=== PATIENT | male | born 1975 | race Caucasian/White ===

== ENCOUNTER 2018-06-06 10:40 | Outpatient (CLI) | payer BC, SELFPAY ==
--- NOTE | 2018-06-06 10:35 | DI.RAD_ITS ---
SYMPTOMS/DIAGNOSIS: PAIN RIGHT KNEE: Two views. Comparison 11/23/16. There is moderate narrowing of the medial femoral tibial joint space. The articular surfaces are otherwise well maintained. The bones are intact and normally mineralized. There is a small enthesophyte of the right patella. There is a small suprapatellar joint effusion. IMPRESSION: Osteoarthritis of the right knee. LEFT KNEE: Two views. The joint spaces are well maintained. There is a small enthesophyte at the superior aspect of the patella. The bones are intact and normally mineralized. The soft tissues are unremarkable. IMPRESSION: Unremarkable examination.
== END 2018-06-06 11:00 ==
PROVIDERS: Visit Provider Orthopaedic Surgery
DX: M25.561 Pain in right knee (principal); M25.562 Pain in left knee; M17.11 Unilateral primary osteoarthritis, right knee
CPT/HCPCS: 73560

== ENCOUNTER 2018-08-28 15:28 | Emergency (ER) | payer BC, SELFPAY ==
[2018-08-28 15:31] VITALS: BP 133/89; PULSE 96; RESP 16; TEMP 36.9; O2SAT 95
--- NOTE | 2018-08-28 15:34 | W.ED.GENAD ---
Discharge Plan Disposition Patient Disposition: HOME Condition: Stable Discharge Details Chief Complaint: Vascular Clinical Impression: Traumatic ecchymosis of right lower leg, Hernia, umbilical Primary Care Provider: Gisell Tony ED Provider: Edmar Butler Home Meds and New Rx's Prescriptions: Continued Prednisone 5 mg tablet 5 mg PO QAM RF: 0 loratadine-pseudoephedrine 1 EACH tablet extended release 24 hr 1 ea PO DAILY RF: 0 citalopram 20 MG tablet 40 mg PO DAILY RF: 0 ranitidine HCl [Zantac Maximum Strength] 150 MG tablet 150 mg PO DAILY PRNRF: 0 Symbicort 10.2 GM HFA aerosol inhaler 2 puff Inhalation BID RF: 0 hydrochlorothiazide 25 MG tablet 1 tab PO DAILY RF: 0 albuterol sulfate [ProAir HFA] 200 PUFF HFA aerosol inhaler 2 puff Inhalation PRN PRNRF: 0 Discharge Instructions Instructions: Umbilical Hernia (ED), Ecchymosis (ED) Additional Instructions: He may wear the compression socks while awake or perform activities and remove them at night. This will help with swelling and discomfort. You may continue to use [id number] pain medication as needed for pain and apply ice as well to help with swelling along with keep extremities elevated. If not improving over the next week please follow-up with your primary care provider for reassessment and for any rapid changes or new symptoms feel free to return to the emergency department for reevaluation. Referrals: [facility] [Provider Group] (Call the office in the next couple days for arrangement of follow-up appointment for your umbilical hernia.) Gisell Tony [Primary Care Provider] - (As needed for reassessment) Discharge Data Discharge Date/Time-TO BE ENTERED AT DEPARTURE: 08/28/18 17:46 Medical Decision Making <SHAUN Monte - Last Filed: 08/29/18 13:37> Patient is a 43-year-old male presenting today with chief complaint of right lower extremity swelling and ecchymosis. He reports that 4 days ago he fell from a ladder striking the anterior aspect of his tibia against a wrong and suffering an abrasion. The abrasion has healed well but he continues to have ecchymosis that runs along the anterior medial aspect of the tibia and down into the medial aspect of the foot. Much of this seems to have been ecchymosis from the initial trauma that is come down secondary to gravity. However, I am concerned that he has pitting edema particular on the medial aspect. Negative Homans sign. 2+ distal pulses. Foot is normal as is the knee. Patient denies any chest pain or shortness of breath. Patient slightly tachycardic at 96. At this point, my primary concern is for possible posttraumatic clot, will obtain a DVT study. Patient is also questioning hernia on his abdomen. He reports that a few months ago he was coughing forcefully and since then has noted a defect to the left lateral aspect of the umbilicus. He does have a palpable defect here. No evidence of incarceration. Will refer patient to general surgery for follow-up. At the end of my shift, care transitioned to Peña Butler NP with imaging pending. <Edmar Butler NP - Last Filed: 08/28/18 17:52> Patient signed out to myself by SHAUN Monte pending DVT study for left lower extremity trauma. Results were reviewed and show no acute findings for thrombosis. Patient reassessed and does show significant ecchymosis and swelling to the anterior medial aspect of the right tibia with pain to palpation of the anterior surface. While I feel that this may be secondary to level of ecchymosis and swelling did discuss with patient radiological imaging given that it was a traumatic event that caused the initial injury. Patient was agreeable to this and tib-fib imaging was ordered. Review of radiological imaging and radiologist interpretation shows no acute findings on x-ray imaging of the tib-fib. Patient was given SHYANNE hose to help with the swelling and informed to follow-up with his primary care if not improving over the next week. Otherwise patient to follow-up with general surgery as discussed in previous note for evaluation of his umbilical hernia has no emergent findings at this time. Return precautions were discussed. After discussion of diagnosis and plan of care patient has no further needs, questions, or concerns and states clear understanding to return to the emergency department for any worsening symptoms. HPI <SHAUN Monte - Last Filed: 08/29/18 13:37> General Mode of arrival: ambulatory. Date/Time Provider Initiated Documentation: 08/28/18 15:34. Limitations to Documentation: no limitations. Information obtained by: patient and RN notes reviewed. History of Present Illness 43 year old M presents to the emergency department with the chief complaint of right tibia swelling and ecchymosis, described as moderate, with intensity rated at 6. Quality is described as aching, and is localized to the right and lower extremity. Patient reports no radiation. Patient started experiencing this day(s) and it has been constant. No relieving factors improve symptom(s), No exacerbating factors reported . Patient notes no other symptoms.; denies chest pain and shortness of breath. Patient did receive the following treatments prior to arrival, none Related Data Home Medications Medication Instructions Recorded Confirmed albuterol sulfate [ProAir HFA] 2 puff INHALATION PRN PRN 11/28/15 08/28/18 hydrochlorothiazide 1 tab PO DAILY 11/28/15 08/28/18 Symbicort 2 puff INHALATION BID inhaler 02/05/16 08/28/18 citalopram 40 mg PO DAILY tab-cap 02/05/16 08/28/18 loratadine-pseudoephedrine 1 ea PO DAILY 02/05/16 08/28/18 ranitidine HCl [Zantac Maximum 150 mg PO DAILY PRN tab-cap 02/05/16 08/28/18 Strength] Prednisone 5 mg PO QAM 06/06/18 07/11/18 Allergies Allergy/AdvReac Type Severity Reaction Status Date / Time montelukast [From Singulair] AdvReac irritabilit Verified 08/28/18 15:38 y Review of Systems <SHAUN Monte - Last Filed: 08/29/18 13:37> Constitutional Reports as per HPI, Denies chills, Denies fever(s), Denies headache(s) and Denies weakness ENT Denies headache(s) Cardiovascular Reports as per HPI Respiratory Reports as per HPI and Denies cough Musculoskeletal Reports as per HPI and Denies tingling Integumentary/Breasts Reports as per HPI, Denies rash and Denies wounds Neurologic Reports as per HPI, Denies headache(s), Denies tingling, Denies paresthesias and Denies weakness PFS <SHAUN Monte - Last Filed: 08/29/18 13:37> Social History Smoking/Tobacco Use Status: Current every day Tobacco Type: smokeless tobacco Drug use: Never Substance use type: does not use Do you feel safe at home: Yes Do you feel safe in your relationship?: Yes Exam <SHAUN Monte - Last Filed: 08/29/18 13:37> Const General: cooperative, healthy appearing, comfortable, no acute distress, well developed and well groomed Nutritional Appearance: average body habitus and well nourished Orientation: alert and awake Resp Effort & Inspection: normal respiratory effort, able to speak in complete sentences and no respiratory distress Cardio Rate: regular rate Rhythm: regular rhythm GI Inspection: obesity, no scars and visible herniation (umbilical, small palpable defect left side) Palpation: soft, no hepatosplenomegaly, not firm, no guarding and nontender Skin General skin exam: ecchymosis (length of tibia anterior medial) and no erythema Neuro General: alert and awake Cognition: normal cognition Speech: speech normal Gait: normal gait Motor: muscle tone normal throughout Sensory Exam: no sensory deficits noted Extrem General: full ROM, normal capillary refill, no joint enlargement noted (swelling medial right ankle), no calf tenderness, normal gait, no calf tenderness bilaterally and edema Laterality: right (pitting edema) Left lower extremity: foot Details: normal capillary refill and vascular exam Details: dorsalis pedis pulse present, posterior tibial pulse present and normal capillary refill; no tenderness and no unusual warmth; abnormal to inspection (as above) Psych Appearance: grossly normal and well kempt Mental Status: mental status grossly normal Speech and Movement: speech and movement normal Sign Out <SHAUN Monte - Last Filed: 08/29/18 13:37> Sign Out Data: Sign Out Comment: Care transitioned to [facility] with imaging pending. Last updated by Laine Fox PA at 08/28/18 16:31
--- NOTE | 2018-08-28 15:36 | DI.US_ITS ---
SYMPTOM/DIAGNOSIS: PAIN, SWELLING, DISCOLORATION, WORSENING, H/O TRAUMA, FELL OFF LADDER RIGHT LOWER EXTREMITY ULTRASOUND: The deep veins of the right lower extremity show normal compression, augmentation and color flow. There is no evidence of a deep venous thrombus. The saphenofemoral junction appears unremarkable. There is edema seen in the subcutaneous tissues of the lower leg. Note is made of a 3.5 by 2.2 by 1.9 cm. popliteal cyst. IMPRESSION: No evidence of a right lower extremity deep venous thrombus. RIGHT LEG: Three views. No acute bone, joint or soft tissue abnormality is appreciated.
--- NOTE | 2018-08-28 15:43 | NUR.NOTE ---
calf circumfrance measursed found to be 42 inches on r side compared to 35 inches on left side + pedal pulses able to wiggle toes + sensation Nursing Note:
--- NOTE | 2018-08-28 16:29 | NUR.NOTE ---
pt back from us Nursing Note:
--- NOTE | 2018-08-28 16:31 | ED.GENADUL_ITS ---
Discharge Plan Disposition Patient Disposition: HOME Condition: Stable Discharge Details Chief Complaint: Vascular Clinical Impression: Traumatic ecchymosis of right lower leg, Hernia, umbilical Primary Care Provider: Gisell Tony ED Provider: Edmar Butler Home Meds and New Rx's Prescriptions: Continued Prednisone 5 mg tablet 5 mg PO QAM RF: 0 loratadine-pseudoephedrine 1 EACH tablet extended release 24 hr 1 ea PO DAILY RF: 0 citalopram 20 MG tablet 40 mg PO DAILY RF: 0 ranitidine HCl [Zantac Maximum Strength] 150 MG tablet 150 mg PO DAILY PRNRF: 0 Symbicort 10.2 GM HFA aerosol inhaler 2 puff Inhalation BID RF: 0 hydrochlorothiazide 25 MG tablet 1 tab PO DAILY RF: 0 albuterol sulfate [ProAir HFA] 200 PUFF HFA aerosol inhaler 2 puff Inhalation PRN PRNRF: 0 Discharge Instructions Instructions: Umbilical Hernia (ED), Ecchymosis (ED) Additional Instructions: He may wear the compression socks while awake or perform activities and remove them at night. This will help with swelling and discomfort. You may continue to use [id number] pain medication as needed for pain and apply ice as well to help with swelling along with keep extremities elevated. If not improving over the next week please follow-up with your primary care provider for reassessment and for any rapid changes or new symptoms feel free to return to the emergency department for reevaluation. Referrals: [facility] [Provider Group] (Call the office in the next couple days for arrangement of follow-up appointment for your umbilical hernia.) Gisell Tony [Primary Care Provider] - (As needed for reassessment) Discharge Data Discharge Date/Time-TO BE ENTERED AT DEPARTURE: 08/28/18 17:46 Medical Decision Making <SHAUN Monte - Last Filed: 08/29/18 13:37> Patient is a 43-year-old male presenting today with chief complaint of right lower extremity swelling and ecchymosis. He reports that 4 days ago he fell from a ladder striking the anterior aspect of his tibia against a wrong and suffering an abrasion. The abrasion has healed well but he continues to have ecchymosis that runs along the anterior medial aspect of the tibia and down into the medial aspect of the foot. Much of this seems to have been ecchymosis from the initial trauma that is come down secondary to gravity. However, I am concerned that he has pitting edema particular on the medial aspect. Negative Homans sign. 2+ distal pulses. Foot is normal as is the knee. Patient denies any chest pain or shortness of breath. Patient slightly tachycardic at 96. At this point, my primary concern is for possible posttraumatic clot, will obtain a DVT study. Patient is also questioning hernia on his abdomen. He reports that a few months ago he was coughing forcefully and since then has noted a defect to the left lat eral aspect of the umbilicus. He does have a palpable defect here. No evidence of incarceration. Will refer patient to general surgery for follow-up. At the end of my shift, care transitioned to Peña Butler NP with imaging pending. <Edmar Butler NP - Last Filed: 08/28/18 17:52> Patient signed out to myself by SHAUN Monte pending DVT study for left lower extremity trauma. Results were reviewed and show no acute findings for thrombosis. Patient reassessed and does show significant ecchymosis and swelling to the anterior medial aspect of the right tibia with pain to palpation of the anterior surface. While I feel that this may be secondary to level of ecchymosis and swelling did discuss with patient radiological imaging given that it was a traumatic event that caused the initial injury. Patient was agreeable to this and tib-fib imaging was ordered. Review of radiological imaging and radiologist interpretation shows no acute findings on x-ray imaging of the tib-fib. Patient was given SHYANNE hose to help with the swelling and informed to follow-up with his primary care if not improving over the next week. Otherwise patient to follow-up with general surgery as discussed in previous note for evaluation of his umbilical hernia has no emergent findings at this time. Return precautions were discussed. After discussion of diagnosis and plan of care patient has no further needs, questions, or concerns and states clear understanding to return to the emergency department for any worsening symptoms. HPI <SHAUN Monte - Last Filed: 08/29/18 13:37> General Mode of arrival: ambulatory . Date/Time Provider Initiated Documentation: 08/28/18 15:34 . Limitations to Documentation: no limitations . Information obtained by: patient and RN notes reviewed . History of Present Illness 43 year old M presents to the emergency department with the chief complaint of right tibia swelling and ecchymosis, described as moderate, with intensity rated at 6. Quality is described as aching, and is localized to the right and lower extremity. Patient reports no radiation. Patient started experiencing this day(s) and it has been constant. No relieving factors improve symptom(s), No exacerbating factors reported . Patient notes no other symptoms.; denies chest pain and shortness of breath. Patient did receive the following treatments prior to arrival, none Related Data Home Medications Medication Instructions Recorded Confirmed albuterol sulfate [ProAir HFA] 2 puff INHALATION PRN PRN 11/28/15 08/28/18 hydrochlorothiazide 1 tab PO DAILY 11/28/15 08/28/18 Symbicort 2 puff INHALATION BID inhaler 02/05/16 08/28/18 citalopram 40 mg PO DAILY tab-cap 02/05/16 08/28/18 loratadine-pseudoephedrine 1 ea PO DAILY 02/05/16 08/28/18 ranitidine HCl [Zantac Maximum 150 mg PO DAILY PRN tab-cap 02/05/16 08/28/18 Strength] Prednisone 5 mg PO QAM 06/06/18 07/11/18 Allergies Allergy/AdvReac Type Severity Reaction Status Date / Time montelukast [From [facility]] AdvReac irritabilit Verified 08/28/18 15:38 y Review of Systems <SHAUN Monte - Last Filed: 08/29/18 13:37> Constitutional Reports as per HPI, Denies chills, Denies fever(s), Denies headache(s) and Denies weakness ENT Denies headache(s) Cardiovascular Reports as per HPI Respiratory Reports as per HPI and Denies cough Musculoskeletal Reports as per HPI and Denies tingling Integumentary/Breasts Reports as per HPI, Denies rash and Denies wounds Neurologic Reports as per HPI, Denies headache(s), Denies tingling, Denies paresthesias and Denies weakness PFS <SHAUN Monte - Last Filed: 08/29/18 13:37> Social History Smoking/Tobacco Use Status: Current every day Tobacco Type: smokeless tobacco Drug use: Never Substance use type: does not use Do you feel safe at home: Yes Do you feel safe in your relationship?: Yes Exam <SHAUN Monte - Last Filed: 08/29/18 13:37> Const General: cooperative, healthy appearing, comfortable, no acute distress, well developed and well groomed Nutritional Appearance: average body habitus and well nourished Orientation: alert and awake Resp Effort & Inspection: normal respiratory effort, able to speak in complete sentences and no respiratory distress Cardio Rate: regular rate Rhythm: regular rhythm GI Inspection: obesity, no scars and visible herniation (umbilical, small palpable defect left side) Palpation: soft, no hepatosplenomegaly, not firm, no guarding and nontender Skin General skin exam: ecchymosis (length of tibia anterior medial) and no erythema Neuro General: alert and awake Cognition: normal cognition Speech: speech normal Gait: normal gait Motor: muscle tone normal throughout Sensory Exam: no sensory deficits noted Extrem General: full ROM, normal capillary refill, no joint enlargement noted (swelling medial right ankle), no calf tenderness, normal gait, no calf tenderness bilaterally and edema Laterality: right (pitting edema) Left lower extremity: foot Details: normal capillary refill and vascular exam Details: dorsalis pedis pulse present, posterior tibial pulse present and normal capillary refill; no tenderness and no unusual warmth; abnormal to inspection (as above) Psych Appearance: grossly normal and well kempt Mental Status: mental status grossly normal Speech and Movement: speech and movement normal Sign Out <SHAUN Monte - Last Filed: 08/29/18 13:37> Sign Out Data: Sign Out Comment: Care transitioned to [facility] with imaging pending. Last updated by Laine Fox PA at 08/28/18 16:31
--- NOTE | 2018-08-28 16:49 | DI.VRAD_ITS ---
EXAM: US Duplex Right Lower Extremity Veins, Limited EXAM DATE/TIME: 08/28/2018 4:26 PM CLINICAL HISTORY: 43 years old, male; Pain; Leg, lower; Right; Patient HX: PT fell off ladder 3 days ago TECHNIQUE: Imaging protocol: Real-time Duplex ultrasound of the Right Lower Extremity with 2-D guillory scale, color Doppler flow and spectral waveform analysis. Limited exam was focused on the right lower extremity veins. COMPARISON: No relevant prior studies available. FINDINGS: Right deep veins: Unremarkable. The common femoral, femoral, proximal profunda femoral and popliteal veins are patent without thrombus. Normal Doppler waveforms. Normal compressibility and/or augmentation response. Right superficial veins: Unremarkable. Saphenofemoral junction is patent without thrombus. Soft tissues: Unremarkable. IMPRESSION: No acute findings. No evidence of deep vein thrombosis. Dictated and Authenticated by: Radha Tamez MD. Ordering:GUERRERO Jang MD
--- NOTE | 2018-08-28 17:03 | NUR.NOTE ---
practioner at bedside for review pt resting in bed resp even unlabored no distres noted none stated Nursing Note:
--- NOTE | 2018-08-28 17:24 | DI.VRAD_ITS ---
EXAM: XR Right Tibia and Fibula EXAM DATE/TIME: 08/28/2018 4:58 PM CLINICAL HISTORY: 43 years old, male; Signs and symptoms; Swelling, leg or foot; Patient HX: Anterior tib/fib pain , trauma TECHNIQUE: Imaging protocol: XR Right tibia and fibula. Views: 2 views. COMPARISON: CR XR knee RT 2V AP,lat 06/06/2018 10:52 AM FINDINGS: Bones/joints: Normal. Soft tissues: Normal. IMPRESSION: No acute findings. Dictated and Authenticated by: Radha Tamez MD. Ordering:MALIHA Hyatt MD
[2018-08-28 18:02] VITALS: BP 134/78; PULSE 88; RESP 14; TEMP 36.7; O2SAT 97
--- NOTE | 2018-08-28 18:04 | NUR.NOTE ---
pt dc home ambulatory steady on dc resp even unlabored no distress noted none stated Nursing Note:
== END 2018-08-28 17:46 | disposition home or self-care (01) ==
LOC: ER 18:24
PROVIDERS: Emergency Provider Nurse Practitioner Family
DX: S80.11XA Contusion of right lower leg, initial encounter (principal); K42.9 Umbilical hernia without obstruction or gangrene
CPT/HCPCS: 99284; 73590; 93971

== ENCOUNTER 2018-10-22 03:44 | Emergency (ER) | payer BC, SELFPAY ==
[2018-10-22 03:48] VITALS: BP 152/98; PULSE 86; RESP 16; TEMP 36.7; O2SAT 98
--- NOTE | 2018-10-22 03:51 | ED.GENADUL_ITS ---
Discharge Plan Disposition Patient Disposition: HOME Condition: Stable Discharge Details Chief Complaint: EarProblem Clinical Impression: Otitis externa of right ear Primary Care Provider: Gisell Tony ED Provider: Sang Diaz Home Meds and New Rx's Prescriptions: New levofloxacin 750 mg tablet 750 mg PO DAILY Qty: 7 RF: 0 No Action loratadine-pseudoephedrine 1 EACH tablet extended release 24 hr 1 ea PO DAILY RF: 0 citalopram 20 MG tablet 40 mg PO DAILY RF: 0 ranitidine HCl [Zantac Maximum Strength] 150 MG tablet 150 mg PO DAILY PRNRF: 0 Symbicort 10.2 GM HFA aerosol inhaler 2 puff Inhalation BID RF: 0 hydrochlorothiazide 25 MG tablet 1 tab PO DAILY RF: 0 albuterol sulfate [ProAir HFA] 200 PUFF HFA aerosol inhaler 2 puff Inhalation PRN PRNRF: 0 Discharge Instructions Instructions: Otitis Externa (ED) Additional Instructions: if symptoms continue in a week see your primary care provider you can take 1000mg tylenol and 600mg ibuprofen every 6 hours for pain as needed if you have high fevers or severe worsening of pain return to the emergency department Medical Decision Making 43 yo male comes in with right ear pain for several days and has been swimming recently. He denies fevers. His left exsternal auditory canal, external mastoid and tm are normal. His right external auditory canal is severely swollen and tender when pulling on the pinna, normal external mastoid exam. Given degree of swelling not sure if drops will work so will start abx and advised f/u with pcp and return precautions given. He has no facial nerve deficits, no immunosuppresion or diabetes so doubt malignant otitis externa Differential Diagnosis otitis externa, otitis media HPI General Mode of arrival: ambulatory . Date/Time Provider Initiated Documentation: 10/22/18 03:45 . Limitations to Documentation: no limitations . Information obtained by: patient . History of Present Illness 43 year old M presents to the emergency department with the chief complaint of right ear pain, described as moderate, Quality is described as stabbing and aching, No relieving factors improve symptom(s), No exacerbating factors reported . Patient did receive the following treatments prior to arrival, none Related Data Home Medications Medication Instructions Recorded Confirmed albuterol sulfate [ProAir HFA] 2 puff INHALATION PRN PRN 11/28/15 10/22/18 hydrochlorothiazide 1 tab PO DAILY 11/28/15 10/22/18 Symbicort 2 puff INHALATION BID inhaler 02/05/16 10/22/18 citalopram 40 mg PO DAILY tab-cap 02/05/16 10/22/18 loratadine-pseudoephedrine 1 ea PO DAILY 02/05/16 10/22/18 ranitidine HCl [Zantac Maximum 150 mg PO DAILY PRN tab-cap 02/05/16 10/22/18 Strength] levofloxacin 750 mg PO DAILY #7 tab 10/22/18 Previous Rx's Medication Instructions Recorded levofloxacin 750 mg PO DAILY #7 tab 10/22/18 Allergies Allergy/AdvReac Type Severity Reaction Status Date / Time montelukast [From Singulair] AdvReac irritabilit Verified 10/22/18 03:51 y General Stated Complaint: EarProblem JEFFERY: 5 Review of Systems Review of Systems All systems reviewed & are unremarkable except as noted in HPI and below Constitutional Denies chills, Denies fever(s) and Denies weakness Cardiovascular Denies chest pain and Denies dyspnea Respiratory Denies cough and Denies dyspnea Gastrointestinal Denies abdominal pain, Denies nausea and Denies vomiting Integumentary/Breasts Denies rash Neurologic Denies weakness [facility] Medical History (Updated 10/22/18 @ 03:53 by Eneida Cisneros) Arthritis (Acute) Asthma (Chronic) High blood pressure (Chronic) Umbilical hernia without mention of obstruction or gangrene (Acute) Surgical History (Updated 10/22/18 @ 03:52 by Eneida Cisneros) History of vasectomy (Acute) Social History Smoking/Tobacco Use Status: Current every day Tobacco Type: smokeless tobacco Alcohol Intake: former Drug use: Never Substance use type: does not use Do you feel safe at home: Yes Do you feel safe in your relationship?: Yes Exam Const General: no acute distress Orientation: alert HENMT Head: normal to inspection General nose exam: external nose normal Mouth: moist mucous membranes Eyes General: appearance normal, both eyes and all related structures Neck Neck: normal visual inspection Resp Effort & Inspection: normal respiratory effort and able to speak in complete sentences Cardio Rate: regular rate Skin General skin exam: no rashes or lesions noted Neuro General: alert and oriented x3 Extrem General: normal to inspection Psych Mental Status: mental status grossly normal Course Vital Signs Temperature 36.7 C 10/22/18 03:48 Pulse 86 10/22/18 03:48 Respiratory Rate 16 10/22/18 03:48 Blood Pressure 152/98 H 10/22/18 03:48 Pulse Oximetry 98 10/22/18 03:48 Temperature 36.7 C 10/22/18 03:48 Temperature Source Oral 10/22/18 03:48 Pulse 86 10/22/18 03:48 Respiratory Rate 16 10/22/18 03:48 Blood Pressure 152/98 H 10/22/18 03:48 Pulse Oximetry 98 10/22/18 03:48 Pain Level 10 10/22/18 03:48
[2018-10-22] MEDS: Ibuprofen 600 MG TAB PO (03:57)
[2018-10-22] MEDS: Acetaminophen 500 MG TAB 1000 MG PO (03:58)
[2018-10-22] MEDS: levoFLOXacin 500 MG, levoFLOXacin 250 MG 750 MG PO (03:58)
== END 2018-10-22 04:06 | disposition home or self-care (01) ==
LOC: ER 04:14
PROVIDERS: Emergency Provider Emergency Medicine
DX: H60.502 Unspecified acute noninfective otitis externa, left ear (principal)
CPT/HCPCS: 99283

== ENCOUNTER 2019-04-17 10:03 | Outpatient (CLI) | payer BC, SELFPAY ==
--- NOTE | 2019-04-17 | DI.RAD_ITS ---
EXAM: XR KNEE RT 2V AP,LAT INDICATION: pain. COMPARISON: XR knee RT 2V AP,lat from 06/06/2018 XR knee LT 2V AP,lat from 06/06/2018 US lower extremity venous RT from 08/28/2018 XR tib/fib RT from 08/28/2018 TECHNIQUE: 2D digital imaging was performed. FINDINGS: Again noted is severe narrowing of the medial femoral tibial joint space. There is varus angulation . There is sclerosis of the medial femoral condyle and medial tibial plateau and mild periarticular spurring. Spurring is also noted at the articular aspect of the patella. No joint effusion is visi ble. IMPRESSION: Stable severe degenerative changes of the medial femoral tibial joint space.
== END 2019-04-17 10:23 ==
PROVIDERS: Visit Provider Orthopaedic Surgery
DX: M25.561 Pain in right knee (principal); M17.11 Unilateral primary osteoarthritis, right knee
CPT/HCPCS: 73560

== ENCOUNTER 2020-01-14 11:45 | Outpatient (CLI) | payer BC, SELFPAY ==
--- NOTE | 2020-01-14 11:15 | DI.RAD_ITS ---
EXAM: XR KNEE RT 3V AP,LAT,FLORES CLINICAL HISTORY: Knee pain TECHNIQUE: COMPARISON: CR XR KNEE RT 2V AP,LAT from 04/17/2019 CR XR STANDING ALIGNMENT from 01/14/2020 FINDINGS: AP standing alignment views 3 additional views of the right knee were obtained. There is severe loss of cartilaginous joint space of the right knee with mild varus angulation. There is mild medial sub luxation the femur on the tibia of the right knee. Mild marginal osteophyte formation noted and ther e is mild subchondral sclerosis of the medial tibial plateau on the right. There are also degenerative changes of the medial tibiofemoral joint on left. Mild DJD of both hips noted. IMPRESSION: RADIATION DOSE DELIVERED: Total DLP
== END 2020-01-14 12:05 ==
PROVIDERS: Visit Provider Student in an Organized Health Care Education/Training Program
DX: M17.11 Unilateral primary osteoarthritis, right knee (principal); M16.0 Bilateral primary osteoarthritis of hip
CPT/HCPCS: 73562; 77073

== ENCOUNTER 2020-03-02 01:46 | Outpatient (CLI) | payer BC, SELFPAY ==
[2020-03-04 17:05] LABS: COVID-19 RT-PCR Result NEGATIVE (Negative)
== END 2020-03-02 02:06 ==
PROVIDERS: Visit Provider Student in an Organized Health Care Education/Training Program
DX: Z11.59 Encounter for screening for other viral diseases (principal); Z01.818 Encounter for other preprocedural examination
CPT/HCPCS: U0003

== ENCOUNTER 2020-03-05 06:11 | Day surgery (SDC) | payer BC, SELFPAY ==
[2020-03-05 06:27] VITALS: BP 148/102; PULSE 86; RESP 18; TEMP 36.3; O2SAT 92
[2020-03-05] MEDS: Lactated Ringers 1,000 ML 100 ML IV (06:58)
[2020-03-05] MEDS: Acetaminophen 500 MG TAB 1000 MG PO (07:04)
[2020-03-05] MEDS: Celecoxib 200 MG CAP 400 MG PO (07:04)
[2020-03-05] MEDS: Gabapentin 300 MG CAP PO (07:08)
--- NOTE | 2020-03-05 07:15 | DI.RAD_ITS ---
EXAM: XR KNEE RT 2V AP,LAT INDICATION: Postop. COMPARISON: No exams were available for comparison TECHNIQUE: 2D digital imaging was performed. FINDINGS: Portable AP and cross-table lateral views were performed portably. The patient is s/p placement of a medial femoral tibial joint prosthesis. The components appear satisfactorily aligned. There is res idual postoperative air in the soft tissues. DATA REPOSITORY: RADIATION DOSE DELIVERED:
[2020-03-05] MEDS: ceFAZolin 3,000 MG in Normal Saline 100 ML 200 MG IVPB (07:46)
--- NOTE | 2020-03-05 10:00 | W.PM.OP ---
Date of service: 03/05/20 Time of Service: 09:00 Operative Note Operative Note DATE OF PROCEDURE: 03/05/20 PRE-OP DIAGNOSIS: 1. Right knee medial compartmental arthritis POST-OP DIAGNOSIS: other 1. Right knee medial compartmental arthritis 2. Right knee patellofemoral arthrosis PROCEDURE: 1. Right knee medial unicompartmental arthroplasty, CPT # 05213 2. Right patellar arthroplasty without prosthesis, CPT # 07693 The assistant director of financial aid was medically required as this procedure involves retraction, protection of neurovascular structures, and manipulation of multiple instruments and implants at the same time, which cannot be done without a skilled assistant director of financial aid. SURGEON: Hossein Gaitan STRUCTURAL STEEL WORKER APPRENTICE: Cielo Martinez ANESTHESIA: MAC, regional, local and spinal ESTIMATED BLOOD LOSS: 75 TOURNIQUET TIME: 0 COMPLICATIONS: None Patient was transported to: PACU Patient's condition: stable Implants: DePuy Sigma HP partial knee size 3 metal-backed tibial tray, 7 mm tibial insert fixed bearing, size 5 femoral component Indications: Please see complete medical record for details. Findings: End-stage complete cartilage loss medial compartment especially anterior tibia. Discrete full-thickness cartilage lesion may be 2 x 3 cm central superior trochlea and medial patellar facet about 5 x 8 mm grade II-III chondromalacia with a few millimeters of inferior and medial marginal osteophyte formation. Remainder of trochlea and undersurface patella overwhelmingly majority intact articular cartilage. ACL intact. Lateral compartment intact. Procedure Description: The patient was taken to the operating room and transferred to the operating room table. Spinal anesthesia was induced. All bony prominences were well-padded. Preoperative antibiotics and 1 g TXA were administered. A tourniquet was placed loosely over padding high on the patient's thigh. The knee and lower extremity were prepped and draped in the usual sterile fashion. The correct patient, procedure, and side of the procedure were all verified prior to incision. A slightly medial of midline longitudinal approach was used to the knee extending from the superior pole the patella to the distal aspect of the tibial tubercle. The quadriceps tendon, patella borders, and patellar tendon were exposed. A full-thickness arthrotomy was performed starting splitting the quadriceps tendon and leaving a sleeve of tissue on the medial aspect of the patella and taking care to progress along the medial margin the patellar tendon. The MCL was elevated off the proximal medial tibia. The tibial alignment jig was set in place on the anterior medial aspect of the tibia and carefully adjusted to achieve proper alignment in the coronal and sagittal planes. Reciprocating saw was used to create the vertical cut at the medial aspect of the medial tibial eminence taking care to protect the ACL ligament footprint. The transverse cut was then done using the microsagittal saw through the jig taking care to retract and protect the MCL. The bone piece and cut were inspected and found to be appropriate for patient anatomy. A box rasp was used to clean up the cut especially the L component. The 7 mm spacer block was inserted and found to have good stability in flexion but an 8 mm spacer block was better in extension with approximately 2 mm of joint space opening in 30 degrees of flexion. With the knee in extension, the tibial trial spacer block was used to hailey the rotational alignment and anterior extent of the femoral component. The spacer block was removed and the tibia was sized with the depth gauge. The distal femoral cutting block was inserted taking care to orient it appropriately. A 1 mm velma was inserted on the femoral side to under resect the distal femur by 1 mm to make up for the difference in flexion extension gaps. The cut was done using the saw through the guide. The guide was removed, and the femur was sized with the femoral sizing blocks. The appropriate sized cutting jig was selected. Care was taken to ensure the block was flush with the resected distal femur bone surface. A curved gouge was used to cut the profile of the proximal tip of the femoral prosthesis, hailey the extent of the anterior chamfer cut, and prevent trochlear cartilage delamination. The posterior cut was done through the jig, the anterior cut was done using the osteotomes, the posterior chamfer cut was done through the jig, and the drill was used to drill the 2 peg holes. The cutting block and bone cuts were removed. The medial meniscus remnant was removed. The femoral component trial was placed in the distal femur and the 7 mm spacer block confirmed appropriate balancing in flexion, extension, and again 2 mm of medial joint space opening in 30 degrees of flexion. Tibial template was inserted and the size confirmed to be appropriate. The keel was used by hand to remove bone from the slot and the tibial peg drill was used in the peg hole. Small 2mm drill was used to make appropriate shallow cement drill holes on tibial distal femur surface given profoundly strong subchondral bone without significant cancellous interdigitations available for cement. The pulse lavage was used to clean the bone surfaces. SmartSet medium viscosity cement was prepared. At the appropriate time during the early working phase, the cement was applied to the backside of the tibial and femoral components. Then, cement was carefully placed and pressurized into the proximal tibia taking care to only have minimal cement posteriorly. The tibial component was inserted at an angle and then impacted directing pressure from posterior to anterior to keep the flow of cement from posterior to anterior. Cement was then applied to the distal femur and the femoral component impacted. Excess cement was removed. The knee was brought into full extension and this position with axial load was maintained until the cement was completely hardened 25 minutes due to cold OR temperature. tibial tray supervisor powder and primer canning was removed, and the final tibial insert was inserted and clicked into place. The trochlea and patella cartilage lesions described above. The inferior and medial aspect of the patella had a small marginal osteophyte, which were removed using rongeur and contoured to smooth margin as part of a patellar femoral osteoplasty. Appropriate patellar tracking without any engaging or impinging osteophytes was confirmed after osteophyte removal. The knee was tested through range of motion found to be stable with equal balancing from full extension to flexion past 90 degrees and a couple millimeters of medial joint space opening in 30 degrees of flexion. The wound was copiously irrigated with the pulse lavage and then Irrisept. A combination 266 mg Exparel, 30 mg ketorolac, and 50 mL bupivicaine 0.25% pain injection was widely infiltrated about the knee. Appropriate hemostasis was achieved. The capsule was approximated using #1 Vicryl in a figure-of-8 interrupted fashion and then closed using Stratafix #1 PDS barbed suture in a running fashion. The superficial layers were irrigated. Subcutaneous tissue was closed using 2-0 Monocryl in a buried interrupted fashion. Skin was closed using 3-0 Monocryl in a buried subcuticular fashion. The skin incision was glued and then covered with a Mepilex Ag dressing. An Gianni wrap was applied from the foot up to the thigh. The patient awoke from anesthesia without complication was transferred to the recovery room in stable condition.
[2020-03-05] MEDS: Ketorolac 30 MG/ML VIAL (10:14)
[2020-03-05] MEDS: Bupivacaine 0.25% Pres-Free 30 ML VIAL (10:14)
--- NOTE | 2020-03-05 11:10 | W.PM.DSUDISC ---
Discharge Plan Disposition Patient Disposition: HOME Condition: Stable Discharge Details Reason For Visit: Right knee surgery Attending Provider: Hossein Gaitan Primary Care Provider: None,None Home Meds and New Rx's Prescriptions: New aspirin 325 mg tablet,delayed release (DR/EC) 325 mg PO BID 30 Days Qty: 60 RF: 0 naproxen 250 mg tablet 250 - 500 mg PO BID PRN (Reason: Moderate pain or swelling) Qty: 60 RF: 0 ondansetron 4 mg tablet,disintegrating 4 mg PO Q6H PRN (Reason: nausea or vomiting) Qty: 5 RF: 0 oxycodone 5 mg tablet 5 - 10 mg PO Q4H PRN (Reason: moderate to severe pain) Qty: 16 RF: 0 Continued celecoxib 200 mg capsule 200 mg PO DAILY PRN (Reason: pain) Qty: 90 RF: 0 citalopram 20 MG tablet 40 mg PO DAILY RF: 0 ranitidine HCl [Zantac Maximum Strength] 150 MG tablet 150 mg PO DAILY PRNRF: 0 budesonide-formoterol [Symbicort] 10.2 GM HFA aerosol inhaler 2 puff Inhalation BID RF: 0 hydrochlorothiazide 25 MG tablet 1 tab PO DAILY RF: 0 albuterol sulfate [ProAir HFA] 200 PUFF HFA aerosol inhaler 2 puff Inhalation PRN PRNRF: 0 Discharge Instructions Additional Instructions: Surgery: Right medial unicondylar knee replacement Activity: Weightbearing as tolerated. Recommend elevation to minimize swelling and discomfort. Walk as comfort allows. May use walker as needed. Important to restore full knee extension as soon as possible. May gently progress knee flexion over the next few weeks. Do not rest with pillows behind knee to prevent knee from getting stuck bent. Physical therapy prescription will be sent electronically to start in about 2 weeks. Prescriptions: Aspirin 325 mg take 1 twice a day to prevent a blood clot 30 days Naproxen 250 mg take 1-2 every 12 hours with a meal as needed for moderate pain. Do not use at the same time as celecoxib (Celebrex). Oxycodone 5 mg take 1-2 every 4-6 hours as needed for severe pain You may use lvuz-meh-nlcijtu Tylenol (acetaminophen) as needed for mild pain. These pain medications may be taken all at once or in different combinations as needed. Also, recommend Colace (docusate) as a stool softener as surgery and pain medicine cause constipation. Dressings: Leave Band-Aid in place until follow-up. Keep clean and dry at all times. May remove Gianni wrap tomorrow. May re-wrap with Gianni wrap to help control swelling as needed. Follow-up: 10-14 days with an orthopedic physician metal moulder's assistant and [address] Gaitan. You may take off the leg compression wrap & stockings tomorrow at home. You may also leave them on a few days longer if you have a history of leg swelling or edema. Let us know right away if you develop any redness, drainage, fevers, chest pain, or trouble breathing. Do not drink alcohol or drive for at least 24 hours after anesthesia. Please call the office during business hours with any questions or concerns. Referrals: Hossein Gaitan MD [ [facility] STAFF PHYSICIAN] - Discharge Orders Discharge Orders: Discharge Order (Routine); Ordered 03/05/20 Ordered By: Hossein Gaitan DS: Diagnosis Discharge Diagnosis (1) Primary osteoarthritis of right knee: Status: Chronic
[2020-03-05 11:42] VITALS: BP 137/81; PULSE 79; RESP 15; TEMP 36.6; O2SAT 96
[2020-03-05 11:47] VITALS: BP 132/86; PULSE 83; RESP 17; TEMP 36.6; O2SAT 95
[2020-03-05 11:52] VITALS: BP 133/82; PULSE 78; RESP 15; TEMP 36.6; O2SAT 96
[2020-03-05 12:06] VITALS: BP 134/92; PULSE 76; RESP 17; TEMP 36.6; O2SAT 95
[2020-03-05 12:52] VITALS: BP 116/74; PULSE 84; RESP 18; TEMP 36.2; O2SAT 93
== END 2020-03-05 14:38 | disposition home or self-care (01) ==
PROVIDERS: Visit Provider Student in an Organized Health Care Education/Training Program
PROC: (CPT 27446; principal; 2020-03-05 07:30)
DX: M17.11 Unilateral primary osteoarthritis, right knee (principal); I10 Essential (primary) hypertension; E66.9 Obesity, unspecified; J45.909 Unspecified asthma, uncomplicated
CPT/HCPCS: 27446; 27437; 76942; 73560; J0690; J1100; J1885; J2250; J2370; J2405; J2704

== ENCOUNTER 2020-04-14 09:17 | Outpatient (CLI) | payer BC, SELFPAY ==
--- NOTE | 2020-04-14 09:00 | DI.RAD_ITS ---
EXAM: XR KNEE RT 2V AP,LAT INDICATION: f/u. COMPARISON: CR XR KNEE RT 2V AP,LAT from 03/05/2020 TECHNIQUE: 2D digital imaging was performed. FINDINGS: A medial femoral tibial joint space prosthesis is again noted. The alignment is unchanged. There ar e no periprosthetic lucencies. There are mild degenerative changes of the patellofemoral joint and l ateral femoral tibial joint. DATA REPOSITORY: RADIATION DOSE DELIVERED:
== END 2020-04-14 09:37 ==
PROVIDERS: PCP Family Medicine; Visit Provider Student in an Organized Health Care Education/Training Program
DX: Z96.651 Presence of right artificial knee joint (principal); M17.11 Unilateral primary osteoarthritis, right knee
CPT/HCPCS: 73560

== ENCOUNTER 2020-04-20 03:59 | Outpatient (CLI) | payer BC, SELFPAY ==
[2020-04-21 12:37] LABS: COVID-19 RT-PCR UVMMC Result Negative (Negative)
== END 2020-04-20 04:19 ==
PROVIDERS: PCP Family Medicine; Visit Provider Student in an Organized Health Care Education/Training Program
DX: Z11.52 Encounter for screening for COVID-19 (principal)
CPT/HCPCS: U0003

== ENCOUNTER 2020-06-02 09:56 | Outpatient (CLI) | payer BC, SELFPAY ==
--- NOTE | 2020-06-02 08:15 | DI.RAD_ITS ---
EXAM: XR KNEE RT 2V AP,LAT CLINICAL HISTORY: f/u TECHNIQUE: COMPARISON: CR XR KNEE RT 2V AP,LAT from 04/14/2020 FINDINGS: Two views were obtained and show a medial laron arthroplasty in position. Components appear well seat ed. No other significant bony abnormality seen. There does appear to be a moderate knee joint effus ion. IMPRESSION: RADIATION DOSE DELIVERED: Total DLP
== END 2020-06-02 09:57 | disposition home or self-care (01) ==
LOC: DIORS 09:56
PROVIDERS: PCP Internal Medicine; Referring Provider Internal Medicine; Visit Provider Student in an Organized Health Care Education/Training Program
DX: Z96.651 Presence of right artificial knee joint (principal)
CPT/HCPCS: 73560

== ENCOUNTER 2020-07-21 02:00 | Outpatient (CLI) | payer BC, SELFPAY ==
[2020-07-22 13:08] LABS: COVID-19 RT-PCR UVMMC Result Negative (Negative)
== END 2020-07-21 02:01 | disposition home or self-care (01) ==
LOC: LBO 02:01
PROVIDERS: PCP Internal Medicine; Visit Provider Internal Medicine
DX: Z20.822 Contact with and (suspected) exposure to COVID-19 (principal); R05 Cough
CPT/HCPCS: U0003

== ENCOUNTER 2020-10-28 10:23 | Outpatient (CLI) | payer BC, SELFPAY ==
--- NOTE | 2020-10-28 09:30 | DI.RAD_ITS ---
Exam(s) XR KNEE RT 2V AP,LAT EXAM: XR KNEE RT 2V AP,LAT INDICATION: right knee pain f/u. COMPARISON: CR XR KNEE RT 2V AP,LAT from 03/05/2020 CR XR KNEE RT 2V AP,LAT from 03/05/2020 CR XR KNEE RT 2V AP,LAT from 04/14/2020 CR XR KNEE RT 2V AP,LAT from 04/14/2020 CR XR KNEE RT 2V AP,LAT from 06/02/2020 CR XR KNEE RT 2V AP,LAT from 06/02/2020 TECHNIQUE: 2D digital imaging was performed. FINDINGS: A medial femoral tibial joint space prosthesis is again noted. There has been no definite change giv en slight differences in projection. No joint effusion is seen. The lateral femoral tibial joint sp louise is well maintained and shows mild periarticular spurring. DATA REPOSITORY: RADIATION DOSE DELIVERED:
--- NOTE | 2020-10-28 10:30 | DI.RAD_ITS ---
Exam(s) XR STANDING ALIGNMENT EXAM: XR STANDING ALIGNMENT CLINICAL HISTORY: right knee pain. TECHNIQUE: 2D digital imaging was performed. Standing AP views were performed from the pelvis throu gh the ankles. COMPARISON: CR XR STANDING ALIGNMENT from 01/14/2020 CR XR KNEE RT 2V AP,LAT from 04/14/2020 CR XR KNEE RT 2V AP,LAT from 06/02/2020 CR XR KNEE RT 2V AP,LAT from 06/02/2020 CR XR KNEE RT 2V AP,LAT from 10/28/2020 CR XR KNEE RT 2V AP,LAT from 10/28/2020 FINDINGS: BONES: No acute fracture is present. No bony destructive lesion is seen. JOINTS: Knees: Right medial femoral joint space prosthesis. Mild and mild varus angulation. Narrowi ng medial femoral tibial joint space of the left knee causing mild varus angulation. The ankle and hip joints are unremarkable. SOFT TISSUE: Normal. IMPRESSION: No significant leg length discrepancy. DATA REPOSITORY: RADIATION DOSE DELIVERED:
== END 2020-10-28 10:24 | disposition home or self-care (01) ==
PROVIDERS: PCP Internal Medicine; Referring Provider Internal Medicine; Visit Provider Student in an Organized Health Care Education/Training Program
DX: M17.11 Unilateral primary osteoarthritis, right knee (principal); Z96.651 Presence of right artificial knee joint
CPT/HCPCS: 73560; 77073

== ENCOUNTER 2020-10-28 11:02 | Outpatient (CLI) | payer BC, SELFPAY ==
[2020-10-28 10:52] LABS: ESR 8 mm/hr (0-15)
[2020-10-28 10:53] LABS: Abs Immature Grans 0.02 10^3/uL (0.0-0.06); Absolute Basophil Count 0.08 10^3/uL (0.0-0.2); Absolute Eosinophil Count 0.35 10^3/uL (0.0-0.7); Absolute Lymphocyte Count 2.16 10^3/uL (1.2-3.4); Absolute Monocyte Count 0.65 10^3/uL (0.1-0.8); Absolute Neutrophil Count 4.18 10^3/uL (1.2-6.7); Basophils % 1.1; Eosinophils % 4.7; HCT 44.3 % (40.0-50.0); HGB 15.8 g/dL (13.5-17.5); Immature Grans % 0.3; MCH 32.9 pg (27.0-33.0); MCHC 35.7 % (32.0-36.0); MCV 92.3 fL (80-95); MPV 9.1 fL (8.0-11.0); Monocytes % 8.7; Neutrophils % 56.2; Nucleated RBC 0 %; Platelet Count 168 10^3/uL (130-400); RDW 12.5 % (11.8-14.1); WBC 7.44 10^3/uL (4.4-10.8)
[2020-10-28 11:47] LABS: C-Reactive Protein 1.45 mg/dL (0.0-0.3)
== END 2020-10-28 11:03 | disposition home or self-care (01) ==
LOC: LBO 11:04
PROVIDERS: PCP Internal Medicine; Visit Provider Student in an Organized Health Care Education/Training Program
DX: M25.561 Pain in right knee (principal); M17.11 Unilateral primary osteoarthritis, right knee
CPT/HCPCS: 36415; 85652; 85025; 86140

== ENCOUNTER 2020-12-02 09:51 | Outpatient (CLI) | payer BC, SELFPAY ==
--- NOTE | 2020-12-02 09:45 | DI.RAD_ITS ---
Exam(s) XR KNEE RT 2V AP,LAT EXAM: XR KNEE RT 2V AP,LAT CLINICAL HISTORY: osteoarthritis of right knee f/u. TECHNIQUE: 2D digital imaging was performed. COMPARISON: CR XR KNEE RT 2V AP,LAT from 10/28/2020 FINDINGS: BONES: There are stable post operative changes present. No fracture or dislocation. There is an ent hesophyte at the superior patella. JOINTS: The joint spaces are well maintained. Small joint effusion. SOFT TISSUE: Normal. IMPRESSION: Stable postoperative changes. DATA REPOSITORY: RADIATION DOSE DELIVERED:
== END 2020-12-02 09:52 | disposition home or self-care (01) ==
LOC: DIORS 09:51
PROVIDERS: PCP Internal Medicine; Referring Provider Internal Medicine; Visit Provider Student in an Organized Health Care Education/Training Program
DX: M17.11 Unilateral primary osteoarthritis, right knee (principal); T84.59XA Infection and inflammatory reaction due to other internal joint prosthesis, initial encounter; Z96.651 Presence of right artificial knee joint
CPT/HCPCS: 73560

== ENCOUNTER 2021-10-18 16:17 | Emergency (ER) | payer BC, SELFPAY ==
[2021-10-18 16:22] VITALS: PULSE 105; RESP 14; TEMP 36.9; O2SAT 95
[2021-10-18 16:31] VITALS: BP 149/98
--- NOTE | 2021-10-18 16:45 | DI.RAD_ITS ---
Exam(s) XR CHEST 2V PA LATERAL EXAM: XR CHEST 2V PA LATERAL CLINICAL HISTORY: shortness of breath TECHNIQUE: 2D digital imaging was performed of the chest. Two images were obtained. PA and lateral views were obtained. COMPARISON: No exams were available for comparison FINDINGS: MEDIASTINUM: Normal. HEART: Normal. PULMONARY VASCULATURE: Normal. LUNGS: There is an opacity seen in the left mid lung measuring 5.7 x 3.9 cm. It extends from the hil um. It appears to lie in the left upper lobe. The lungs are otherwise clear. PLEURAL SPACE: No pleural effusion or pneumothorax. BONE:Within normal limits for the patient's age. OTHER FINDINGS:Normal. IMPRESSION: Parenchymal opacity in the anterior segment of the left upper lobe. While this may represent an infe ctious/inflammatory process neoplasm cannot be excluded. Please correlate clinically. A CT scan of the chest with contrast should be considered for further evaluation. DATA REPOSITORY: RADIATION DOSE DELIVERED:
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
[2021-10-18 17:05] LABS: Bilirubin Moderate (Negative); Blood Small (Negative); Clarity Sl Cloudy (Clear); Glucose 100 mg/dL (Negative); Ketones 40 mg/dL (Negative); Leukocyte Esterase Negative (Negative); Nitrite Positive (Negative); Specific Gravity 1.025 (1.005-1.025); Urobilinogen >=8.0 EU/dL (Up TO 0.2); pH 6.5 (5-8)
[2021-10-18 17:06] LABS: Abs Immature Grans 0.07 10^3/uL (0.0-0.06); Absolute Basophil Count 0.08 10^3/uL (0.0-0.2); Absolute Eosinophil Count 0.14 10^3/uL (0.0-0.7); Absolute Monocyte Count 1.24 10^3/uL (0.1-0.8); Absolute Neutrophil Count 11.74 10^3/uL (1.2-6.7); Basophils % 0.5; Eosinophils % 0.9; HCT 51.8 % (40.0-50.0); HGB 18.3 g/dL (13.5-17.5); Immature Grans % 0.5; Lymphocytes % 13.4; MCHC 35.3 % (32.0-36.0); MCV 91 fL (80-95); MPV 9.1 fL (8.0-11.0); Monocytes % 8.1; Neutrophils % 76.6; Platelet Count 226 10^3/uL (130-400); RBC 5.71 10^6/uL (4.36-5.78); RDW 13.2 % (11.8-14.1); RDW-SD 42.9 fL; WBC 15.33 10^3/uL (4.4-10.8)
[2021-10-18 17:07] LABS: Absolute Lymphocyte Count 2.05 10^3/uL (1.2-3.4)
[2021-10-18] MEDS: Normal Saline 1,000 ML 1000 ML IV (17:07)
[2021-10-18 17:12] LABS: Bacteria Moderate HPF (Negative); C & S Indicated? Yes; Casts Negative LPF (Negative); Crystals Negative HPF (Negative); Epithelial Cells Rare HPF (Negative); Mucus Moderate (Negative)
[2021-10-18 17:20] LABS: ALT 32 U/L (16-63); AST 25 U/L (15-37); Albumin 3.8 g/dL (3.4-5.0); Alkaline Phosphatase 68 U/L (46-116); Anion Gap 9.1 mmol/L (3-11); BUN 9 mg/dL (7-18); CO2 26.9 mmol/L (21.0-32.0); CREATININE 0.9 mg/dL (0.70-1.30); Chloride 91 mmol/L (98-107); Glucose 134 mg/dL (74-106); Potassium 3.6 mmol/L (3.5-5.1); Sodium 127 mmol/L (136-145)
[2021-10-18 17:21] LABS: Creatine Kinase 55 U/L (39-308)
[2021-10-18 17:50] LABS: Magnesium 1.9 mg/dL (1.8-2.4)
[2021-10-18] MEDS: Omnipaque 350 MG/ML 100 ML BTL IJ (17:56)
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
--- NOTE | 2021-10-18 18:23 | DI.VRAD_ITS ---
PROCEDURE INFORMATION: Exam: XR Chest Exam date and time: 10/18/2021 5:52 PM Age: 46 years old Clinical indication: Other: Shortness of breath TECHNIQUE: Imaging protocol: Radiologic exam of the chest. Views: 2 views. COMPARISON: CT ABDOMEN PELVIS W 10/18/2021 5:40 PM FINDINGS: Lungs: Patchy parenchymal opacity is seen in the medial portion of the anterior segment of the left upper lobe extending anteriorly from the left hilum. No other parenchymal mass or consolidation detected. Pleural spaces: No pneumothorax or pleural effusion seen. Heart/Mediastinum: Heart size is normal and vessel margins are sharply defined. Bones/joints: No acute osseous lesions are detected. IMPRESSION: Patchy parenchymal opacity involving the anterior segment of the left upper lobe is indeterminate with both infectious and neoplastic etiologies possible. Correlation with clinical data requested. Dictated and Authenticated by: Devin Bennett MD. Ordering:FERNY Turner MD
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
[2021-10-18] MEDS: levoFLOXacin 500 MG, levoFLOXacin 250 MG 750 MG PO (19:30)
[2021-10-18 19:40] VITALS: BP 157/99; PULSE 97; RESP 16; TEMP 36.9
[2021-10-20 13:14] LABS: TB Interpretation Negative (Negative)
[2021-10-20 15:09] LABS: Chlamydia Result Negative (Negative); GC Result Negative (Negative)
== END 2021-10-18 19:39 | disposition home or self-care (01) ==
PROVIDERS: Emergency Provider Physician Assistant; PCP Internal Medicine
DX: R91.8 Other nonspecific abnormal finding of lung field (principal); N39.0 Urinary tract infection, site not specified; M54.50 Low back pain, unspecified; S46.812A Strain of other muscles, fascia and tendons at shoulder and upper arm level, left arm, initial encounter; V43.92XA Unspecified car occupant injured in collision with other type car in traffic accident, initial encounter; E87.1 Hypo-osmolality and hyponatremia; R31.9 Hematuria, unspecified; R06.02 Shortness of breath
CPT/HCPCS: 36415; 80053; 82550; 87491; 87591; 96360; 99285; 71046; 73030; 74177; 81003; 81015; 83735; 85025; 86480; 87086; 99284; J3490

== ENCOUNTER 2021-11-23 01:22 | Outpatient (CLI) | payer BC, SELFPAY ==
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
[2021-11-23 08:31] LABS: Anion Gap 9.6 mmol/L (3-11); BUN 8 mg/dL (7-18); CO2 29.4 mmol/L (21.0-32.0); CREATININE 0.9 mg/dL (0.70-1.30); Calcium 8.6 mg/dL (8.5-10.1); Chloride 99 mmol/L (98-107); Estimated GFR 106.01 (mL/min/1.73m2); Glucose 129 mg/dL (74-106); Potassium 3.8 mmol/L (3.5-5.1); Sodium 138 mmol/L (136-145)
[2021-11-23 08:38] LABS: Calculated LDL 156 mg/dL (<100); Cholesterol 249 mg/dL (<200); HDL Cholesterol 35 mg/dL (40-60); Triglyceride 293 mg/dL (<150)
[2021-11-23] MEDS: Omnipaque 350 MG/ML 100 ML BTL IJ (08:53)
[2021-11-23] MEDS: Normal Saline Flush 10 ML SYR IVP (08:55)
== END 2021-11-23 01:42 ==
PROVIDERS: Internal Medicine; PCP Family Medicine; Visit Provider Family Medicine
DX: I10 Essential (primary) hypertension (principal); R91.8 Other nonspecific abnormal finding of lung field; I70.0 Atherosclerosis of aorta; K76.0 Fatty (change of) liver, not elsewhere classified
CPT/HCPCS: 80048; 80061; 71260; J3490

== ENCOUNTER 2023-01-13 06:05 | Day surgery (SDC) | payer BC, SELFPAY ==
--- NOTE | 2023-01-12 16:51 | W.PREOPHP ---
Assessment and Plan Assessment and plan (1) Umbilical hernia without mention of obstruction or gangrene: Status: Acute Assessment and plan: We talked about the plan for umbilical hernia today, nature of the operation, and anticipated recovery and complications. I think he has a good understanding of the procedure, and I see no contraindications to proceeding as planned. History of Present Illness History of Present Illness Chief Complaint: Umbilical hernia Narrative: Mr. Paul is a pleasant 47-year-old gentleman who I am seeing today at the request of his primary care physician for an umbilical hernia. He states he has had the hernia for a little while but it is starting to get larger and become more painful. He is also worried about working out and lifting weights because of it. He does not have any nausea or vomiting. He has not had any signs or symptoms of incarceration. His bowel habits are normal. His past medical history is significant for asthma. He uses Symbicort 2 x a day. He has to use his albuterol inhalor 2-3 times a day. this is less then in the past. He is able to walk up a flight of stairs without SOB. He also has high blood pressure which is controlled with lisinopril, he has mild reflux which he treats with famotidine. He is currently on citalopram to try to help him stop chewing tobacco. He chews about 1 tin every 2 days. He drinks 1-2 times a week. He also has sleep apnea. He is unable to use the CPAP machine as it causes his mouth to be quite dry. Since his last office visit, there have been no significant interval changes. He does continue to have some pain around the site, but its been fairly consistent. [facility] All Active Problems No-show for appointment (Acute) Pulmonary nodule (Acute) Continuous chewing tobacco dependence (Acute) Primary osteoarthritis of right knee (Acute ~02/2020) medial compartment only Asthma, persistent (Acute) Sleep apnea (Chronic) untreated; no sleep study available Depression (Chronic) Alcohol abuse, in remission (Acute) GERD (gastroesophageal reflux disease) (Chronic) Essential hypertension (Acute) Obesity, Class II, BMI 35-39.9 (Chronic) Allergic rhinitis (Acute 05/06/13) Primary osteoarthritis of left knee (Chronic) medial compartment only Umbilical hernia without mention of obstruction or gangrene (Acute) Medical History High blood pressure Asthma Arthritis Surgical History Status post unicompartmental knee replacement, right (03/05/20) History of surgery Right meniscal repair, per pt. -BR History of vasectomy Social History Smoking/Tobacco Use Status: Current every day Tobacco Type: smokeless tobacco Smokeless tobacco user: chewing tobacco Quit status: considering quitting Smoking risk assessment performed?: Yes Alcohol Intake: current Alcohol Intake frequency: 0-2 drinks per day Alcohol type: beer Drug use: Rarely Substance use type: marijuana Details: alcohol t-1 a couple of beers pt reports trying marijuana but denies current use Adopted: No Caregiver/Support person: No Foster care: No Housing: apartment Number of Children: 2 Communication Needs: None Do you need help understanding health information?: Rarely current occupation: Medical Engineer [employer] Sexually active: Yes Do you think of yourself as: straight/heterosexual Current gender identity: male What is your relationship status?: Panel score (0-1 are the most socially isolated patients): 0 Seatbelt use: always Working smoke detector in home: Yes Fire extinguisher in home: Yes Carbon monox detector in home: Yes Do you feel safe at home: Yes Do you feel safe in your relationship?: Yes Meds Allergies and Home Medications Allergies Allergy/AdvReac Type Severity Reaction Status Date / Time montelukast [From [facility]] AdvReac irritabilit Verified 01/13/23 06:25 y Home Medications Medication Instructions Recorded Confirmed Type naproxen 500 mg tablet 500 mg PO BID PRN pain #60 tabs 11/04/21 01/13/23 Rx budesonide-formoterol HFA 160 2 puff inhalation BID #3 units 04/22/22 01/13/23 Rx mcg-4.5 mcg/actuation aerosol inhaler (Symbicort) citalopram 20 mg tablet 20 mg PO DAILY #90 tabs 04/22/22 01/13/23 Rx famotidine 20 mg tablet 20 mg PO DAILY Acid reflux #90 tabs 02/03/23 10/27/23 Rx albuterol sulfate 90 mcg/actuation 2 puff inhalation Q6H PRN 11/08/22 01/13/23 Rx aerosol inhaler shortness of breath or wheezing #8.5 grams bupropion HCl (smoking deter) 150 150 mg PO BID #180 tabs 11/08/22 01/13/23 Rx mg tablet,12 hr sustained-release(smoking deterrent) lisinopril 10 1 tab PO DAILY #90 tabs 11/08/22 01/13/23 Rx mg-hydrochlorothiazide 12.5 mg tablet Exam Resp Effort & Inspection: normal respiratory effort Auscultation: clear to auscultation bilaterally Cardio Rate: regular rate Rhythm: regular rhythm GI Other: There is a reducible umbilical hernia, that seems to arise from the cephalad aspect of the umbilical ring, although the majority of the hernia sac lies off to the left
--- NOTE | 2023-01-12 16:52 | ROE_ITS ---
Date of service: 01/13/23 Time of Service: 08:11 Operative Note Operative Note DATE OF PROCEDURE: 01/13/23 PRE-OP DIAGNOSIS: Umbilical hernia PROCEDURE: Open umbilical herniorrhaphy with mesh SURGEON: Baldemar Saldana PLASTIC SURGERY ASSISTANT: Cielo Martinez ANESTHESIA TYPE: Local By Surgeon and General LMA/ETT Refer to Anesthesia Record ESTIMATED BLOOD LOSS: 20 PATHOLOGY: none sent COMPLICATIONS: None Patient was transported to: PACU Patient's condition: stable Implants: Bard Ventralex ST umbilical hernia mesh Indications: Ad is a 47-year-old male with a painful umbilical hernia Procedure Description: Prior to surgery, the patient was seen and examined in the perioperative area. Appropriate location was confirmed and marked. It was clipped. Patient was then brought to the operating room and moved onto the OR table. General anesthesia was induced with a natural airway. Next, I prepped and draped the umbilical area in the usual fashion. I established a generous field block using local anesthetic. Next, I made a curvilinear infraumbilical incision. I dissected down to the fascia, and isolated the hernia sac. I dissected away from the underlying subcutaneous tissues and reduced it back down into the peritoneal cavity, taking great care to clean up the fascial edge, and ensure appropriate overlap of the planned mesh implant. With this complete, a 4.[address] umbilical hernia mesh was advanced down into the subrectus position. The tails were split, and the mesh was pexied onto the fascia using interrupted Prolene sutures. Next, the fascia was closed over the mesh in a horizontal fashion with interrupted Prolene's. The surgical site was irrigated. The underside of the umbilicus was pexied down onto the soft tissues, and the soft tissue layer was closed with interrupted Vicryl stitches. The skin was closed with a running subcuticular stitch, bandages were applied, and the patient was allowed awaken from the anesthetic and transferred to the recovery unit.
--- NOTE | 2023-01-12 16:54 | PDOC.DSDIS_ITS ---
Date of service: 01/13/23 Time of Service: 08:14 Discharge Plan Disposition Patient Disposition: Home Condition: Good Discharge Details Reason For Visit: Umbilical hernia repair Attending Provider: Baldemar Saldana Primary Care Provider: Trever [facility] Home Meds and New Rx's Prescriptions: New tramadol 50 mg tablet 50 mg PO Q8H PRNQty: 9 0RF Rx Instructions: 1 tablet by mouth up to every 8 hours if needed for severe pain. Please be careful with this medication as it can be a bit sedating. You should not be driving while using this medication Continued naproxen 500 mg tablet 500 mg PO BID PRN (Reason: pain) Qty: 60 0RF lisinopril-hydrochlorothiazide 10-12.5 mg tablet 1 tab PO DAILY Qty: 90 3RF bupropion HCl (smoking deter) 150 mg tablet extended release 12 hr 150 mg PO BID Qty: 180 1RF Rx Instructions: Start 150 mg QD for 3 days, then increase to BID; quit on day 7 albuterol sulfate 90 mcg/actuation HFA aerosol inhaler 2 puff inhalation Q6H PRN (Reason: shortness of breath or wheezing) Qty: 8.5 0RF budesonide-formoterol [Symbicort] 160-4.5 mcg/actuation HFA aerosol inhaler 2 puff Inhalation BID Qty: 3 3RF citalopram 20 mg tablet 20 mg PO DAILY Qty: 90 3RF famotidine 20 mg tablet 20 mg PO DAILY Qty: 90 3RF Discharge Instructions Instructions: Umbilical Hernia Repair (DC) Additional Instructions: Ad, we were able to repair your hernia today without much difficulty. The operation went very smoothly, and we were able to place a permanent mesh implant as we talked about before surgery. I would expect some discomfort around the surgical site over the next few days. You may also have a significant amount of bruising. Please do not be alarmed by this occurs. I have provided a prescription for some tramadol in the case that Tylenol and ibuprofen are insufficient for pain control. I also recommend the use heating pads and ice packs as needed for your comfort over the next few days. You can remove the bandages tomorrow night, and wash the incision with warm soapy water. You should shower at least once a day. You can apply Band-Aids over the surgical site if needed for your comfort, or for any drainage that may occur from the i ncision. Please examine the incision daily. If you notice any signs of bright redness, or creamy discharge from the wound, please let me know. Otherwise, we look forward to seeing you in the office for routine postoperative visit. Referrals: Baldemar Saldana MD [ [facility]YSICIAN] - (January 25 at 9:30 AM) Activity:: No heavy lifting Remove Dressings/Wound Care:: 24 hours Shower/Bathe:: 24 hours Diet:: As Tolerated Discharge Orders Discharge Orders: Discharge Order (Routine); Ordered 01/12/23 Ordered By: Baldemar Saldana DS: Diagnosis Discharge Diagnosis (1) Umbilical hernia without mention of obstruction or gangrene: Status: Acute Asessment and Plan: Status post repair of umbilical hernia Follow-up in the outpatient office for routine postoperative care.
[2023-01-13] VITALS (8 sets, daily range): BP systolic 113–155; BP diastolic 66–94; PULSE 70–79; RESP 16–21; TEMP 36.4–36.8; O2SAT 91–95; BMI 39.1
[2023-01-13] MEDS: Celecoxib 200 MG CAP PO (06:39)
[2023-01-13] MEDS: Acetaminophen 500 MG TAB 1000 MG PO (06:39)
[2023-01-13] MEDS: Gabapentin 300 MG CAP 600 MG PO (06:39)
[2023-01-13] MEDS: Lactated Ringers 1,000 ML 80 ML IV (06:55)
--- NOTE | 2023-01-13 07:10 | W.ANESPRE ---
General Info Date of Service Date Performed: 01/13/23 Height: 5 ft 11 in Weight: 127.2 kg Body Mass Index (BMI): 39.1 Surgical Procedure: Operation Date: 01/13/23 07:40 Proposed Procedure Side Surgeon p Herniorrhaphy Umbilical w/Mesh Baldemar Saldana MD Meds Allergies and Home Medications Allergies Allergy/AdvReac Type Severity Reaction Status Date / Time montelukast [From Singulair] AdvReac irritabilit Verified 01/13/23 06:25 y Home Medication Medication Instructions Recorded naproxen 500 mg tablet 500 mg PO BID PRN pain #60 tabs 11/04/21 budesonide-formoterol HFA 160 2 puff inhalation BID #3 units 04/22/22 mcg-4.5 mcg/actuation aerosol inhaler (Symbicort) citalopram 20 mg tablet 20 mg PO DAILY #90 tabs 04/22/22 famotidine 20 mg tablet 20 mg PO DAILY Acid reflux #90 tabs 04/22/22 albuterol sulfate 90 mcg/actuation 2 puff inhalation Q6H PRN 11/08/22 aerosol inhaler shortness of breath or wheezing #8.5 grams bupropion HCl (smoking deter) 150 150 mg PO BID #180 tabs 11/08/22 mg tablet,12 hr sustained-release(smoking deterrent) lisinopril 10 1 tab PO DAILY #90 tabs 11/08/22 mg-hydrochlorothiazide 12.5 mg tablet Current Visit Medications: Current Medications Generic Name Dose Route Start Last Admin Trade Name Freq PRN Reason Stop Dose Admin Acetaminophen 1,000 mg 01/13/23 06:00 01/13/23 06:39 Acetaminophen 500 Mg Tab PO 01/13/23 23:59 1,000 mg PREOP LEYDI Administration Celecoxib 200 mg 01/13/23 06:00 01/13/23 06:39 Celecoxib 200 Mg Cap PO 01/13/23 23:59 200 mg PREOP LEYDI Administration Gabapentin 600 mg 01/13/23 06:00 01/13/23 06:39 Gabapentin 300 Mg Cap PO 01/13/23 23:59 600 mg PREOP LEYDI Administration Ringer's Solution 1,000 mls @ 80 mls/hr 01/13/23 06:00 01/13/23 06:55 IV 01/13/23 23:59 80 mls/hr INFUSION LEYDI Administration Cefazolin Sodium/Dextrose 2 gm in 50 mls @ 100 mls/hr 01/13/23 06:00 Ancef Duplex IVPB 01/13/23 23:59 PREOP LEYDI IV Miscellaneous Supplies 1 each 01/13/23 06:00 Iv Access IV 01/13/23 23:59 DIRECTED LEYDI Morphine Sulfate 2 mg 01/12/23 16:53 Morphine 4 Mg/Ml Syr IVP 02/11/23 16:52 Q1H PRN PRN Sodium Chloride 0 ml 01/13/23 06:00 Normal Saline Flush 10 Ml Syr IV 01/13/23 23:59 PRN PRN Sodium Chloride 0 ml 01/13/23 06:00 Normal Saline 10 Ml Vial IJ 01/13/23 23:59 DIRECTED PRN Sterile Water 0 ml 01/13/23 06:00 Water,Injection,Sterile 10 Ml Vial IJ 01/13/23 23:59 DIRECTED PRN Tramadol HCl 50 mg 01/12/23 16:53 Tramadol 50 Mg Tab PO 02/11/23 16:52 Q6H PRN PRN Pain PFSH Active Problems Active Problems: Problem Status Onset Code No-show for appointment Z91.199 Pulmonary nodule R91.1 Continuous chewing tobacco dependence F17.220 Primary osteoarthritis of right knee ~02/2020 M17.11 Asthma, persistent Sleep apnea G47.30 Depression F32.9 Alcohol abuse, in remission F10.11 GERD (gastroesophageal reflux disease) K21.9 Essential hypertension I10 Obesity, Class II, BMI 35-39.9 E66.9 Allergic rhinitis 05/06/13 J30.9 Primary osteoarthritis of left knee M17.12 Umbilical hernia without mention of obstruction or gangrene K42.9 Medical History Medical History High blood pressure Asthma Arthritis Surgical History Surgical History Status post unicompartmental knee replacement, right (03/05/20) History of surgery Right meniscal repair, per pt. -BR History of vasectomy Tobacco Smoking/Tobacco Use Status: Current every day Tobacco Type: smokeless tobacco Smokeless tobacco user: chewing tobacco Alcohol Alcohol Intake: current Alcohol intake frequency: 0-2 drinks per day Alcohol type: beer Substance Use Substance use: Rarely Substance use type: marijuana Details: alcohol t-1 a couple of beers pt reports trying marijuana but denies current use Vital Signs and Lab Results Vital Signs Most Recent Vital Signs in EMR: Most Recent Vital Signs Temp Pulse Resp BP Pulse Ox 36.8 C 79 20 155/82 H 94 01/13/23 06:25 01/13/23 06:25 01/13/23 06:25 01/13/23 06:25 01/13/23 06:25 Lab Results Blood Type / Crossmatch: No Data to Display Complete Blood Count: No Data to Display Complete Metabolic Panel: No Data to Display Liver Function Panel: No Data to Display Coagulation Panel: No Data to Display Cardiac Panel: No Data to Display Arterial Blood Gas: No Data to Display Venous Blood Gas: No Data to Display Pancreas Panel: No Data to Display Thyroid Panel: No Data to Display Infectious Disease: No Data to Display Blood Cultures: No Data to Display Toxicology Panel: No Data to Display Anesthesia Assessment and Plan Anesthesia History Personal History: No History of Anesthesia Complications Family History: No Family History of Anesthesia Complications Exercise Tolerance Exercise Tolerance: Metabolic Equivalents>4 Pertinent Negatives Pertinent Negatives: No Symptoms of GERD, No Major Cardiovascular Symptoms or Complaints, No Major Pulmonary Symptoms or Complaints and No History of CVA/TIA Cardiac & Pulmonary Exam Cardiac Exam: Normal S1/S2 Heart Sounds Pulmonary Exam: Clear Bilateral Breath Sounds Implantable Cardiac Device Does patient have a Pacemaker or an ICD?: No Airway Exam Known Difficult Airway: No Mallampati Class: 4 Mouth Opening: Normal (> 3cm) Thyromental Distance: Greater than 3 cm Neck Range of Motion: Full ROM Neck Circumference: Thick Teeth Condition: Normal Dentition ASA Classification ASA Score: ASA 3 Emergency Case?: No NPO Status NPO Status: NPO Clears >2 hours, Solids >8 hours Anesthesia Plan Resuscitation Status: Full Code Anesthesia Technique: General Anesthesia Airway Planned: Natural Airway Monitors Used: Standard Monitors
[2023-01-13] MEDS: ceFAZolin 2 GM/50 ML BAG IVPB (07:32)
[2023-01-13] MEDS: Bupivacaine 0.25% Pres-Free 30 ML VIAL (07:51)
--- NOTE | 2023-01-13 09:29 | W.ANESPOSTOP ---
Postoperative Evaluation Date, Time and Location Date Performed: 01/13/23 Time Performed: 08:50 Patient Location: Day Surgery Unit Vital Signs Most Recent Imported Vital Signs: Most Recent Vital Signs Temp Pulse Resp BP Pulse Ox 36.4 C L 70 18 124/81 95 01/13/23 09:23 01/13/23 09:23 01/13/23 09:23 01/13/23 09:23 01/13/23 09:23 Pain Score Most Recent Pain Score: Most Recent Pain Score Pain Level 0 01/13/23 09:23 Assessment Mental Status: Awake (Alert & Oriented to Patient Baseline) Airway and Respiratory Function: Patent airway with normal (patient baseline) respiratory exam Cardiovascular Function: Hemodynamically Stable Hydration Status: Adequately Hydrated Nausea & Vomiting: No Nausea or Vomiting Pain: Pt. Denies Any Pain Peripheral Nerve Block: Patient did not receive a nerve block
== END 2023-01-13 10:00 | disposition home or self-care (01) ==
LOC: SUR 06:05
PROVIDERS: PCP Family Medicine; Visit Provider Surgery
PROC: (CPT 49591; principal; 2023-01-13 07:30)
DX: K42.9 Umbilical hernia without obstruction or gangrene (principal); G47.30 Sleep apnea, unspecified; E66.9 Obesity, unspecified; I10 Essential (primary) hypertension; J45.909 Unspecified asthma, uncomplicated
CPT/HCPCS: 49591; C1781; J0690; J1100; J2001; J2405

== ENCOUNTER 2023-08-16 05:15 | Outpatient (CLI) | payer BC, SELFPAY ==
[2023-08-16 09:37] LABS: ALT 74 U/L (16-63); AST 89 U/L (15-37); Alkaline Phosphatase 89 U/L (46-116); Anion Gap 2.7 mmol/L (3-11); BUN 9 mg/dL (7-18); Bilirubin, Total 1.3 mg/dL (0.2-1.0); CO2 32.3 mmol/L (21.0-32.0); Calcium 9.2 mg/dL (8.5-10.1); Calculated LDL 166 mg/dL (<100); Chloride 97 mmol/L (98-107); Cholesterol 256 mg/dL (<200); Estimated GFR 92.26 (mL/min/1.73m2); Glucose 248 mg/dL (74-106); HDL Cholesterol 38 mg/dL (40-60); Potassium 4.1 mmol/L (3.5-5.1); Sodium 132 mmol/L (136-145); Total Protein 8.5 g/dL (6.4-8.2); Triglyceride 262 mg/dL (<150)
== END 2023-08-16 05:16 | disposition home or self-care (01) ==
LOC: LBO 05:15
PROVIDERS: PCP Family Medicine; Visit Provider Family Medicine
DX: I10 Essential (primary) hypertension (principal)
CPT/HCPCS: 36415; 80053; 80061

== ENCOUNTER 2024-11-20 14:59 | Outpatient (CLI) | payer BC, SELFPAY ==
[2024-11-20 09:40] LABS: HCT 46.3 % (40.0-50.0); HGB 16.6 g/dL (13.5-17.5); MCH 33.1 pg (27.0-33.0); MCHC 35.9 % (32.0-36.0); MCV 92 fL (80-95); MPV 9.0 fL (8.0-11.0); Platelet Count 175 10^3/uL (130-400); RBC 5.01 10^6/uL (4.36-5.78); RDW 12.2 % (11.8-14.1); RDW-SD 41.1 fL; WBC 5.99 10^3/uL (4.4-10.8)
[2024-11-20 10:13] LABS: ALT 87 U/L (16-63); AST 68 U/L (15-37); Albumin 4.0 g/dL (3.4-5.0); Alkaline Phosphatase 88 U/L (46-116); Anion Gap 9.7 mmol/L (3-11); BUN 11 mg/dL (7-18); Bilirubin, Total 1.0 mg/dL (0.2-1.0); CO2 29.3 mmol/L (21.0-32.0); Calcium 8.7 mg/dL (8.5-10.1); Calculated LDL 150 mg/dL (<100); Chloride 98 mmol/L (98-107); Cholesterol 244 mg/dL (<200); Estimated GFR 107.82 (mL/min/1.73m2); Glucose 184 mg/dL (74-106); HDL Cholesterol 35 mg/dL (>or=40); Potassium 4.0 mmol/L (3.5-5.1); Sodium 137 mmol/L (136-145); Total Protein 8.1 g/dL (6.4-8.2); Triglyceride 296 mg/dL (<150)
[2024-11-20 20:13] LABS: HBs Antibody, Qual Negative (See Note); HBs Antibody, Quant 6.4 mIU/mL (See Note); Hepatitis C Ab w Rflx HCV PCR Negative (Negative)
== END 2024-11-20 15:00 | disposition home or self-care (01) ==
LOC: LBO 14:59
PROVIDERS: PCP Family Medicine; Referring Provider Family Medicine; Visit Provider Family Medicine
DX: E78.5 Hyperlipidemia, unspecified (principal); R79.89 Other specified abnormal findings of blood chemistry
CPT/HCPCS: 36415; 80053; 80061; 85027; 86704; 86706; 86803; 87340